=== PATIENT | female | born 1955 ===

== ENCOUNTER 2024-03-26 11:24 | Outpatient (RCR) | payer MEDICARE, BC, SELFPAY ==
[2024-03-26] MEDS: INJECTAFER 265 MG IV (11:56)
[2024-03-26 12:00] VITALS: BP 156/78
[2024-03-26 12:06] VITALS: BMI 36.3
[2024-03-26 12:47] VITALS: BP 135/63
== END 2024-03-27 10:13 | disposition home or self-care (01) ==
LOC: OID 11:24
PROVIDERS: ATTENDING PHYSICIAN Student in an Organized Health Care Education/Training Program
DX: D50.8 Other iron deficiency anemias (principal); I25.10 Atherosclerotic heart disease of native coronary artery without angina pectoris; R53.83 Other fatigue
CPT/HCPCS: 96365; J1439

== ENCOUNTER 2024-04-02 13:03 | Outpatient (RCR) | payer MEDICARE, BC, SELFPAY ==
[2024-04-02] MEDS: INJECTAFER 265 MG IV (13:33)
[2024-04-02 13:40] VITALS: BP 144/71
[2024-04-02 15:00] VITALS: BP 153/88
== END 2024-04-03 11:14 | disposition home or self-care (01) ==
LOC: OID 13:03
PROVIDERS: ATTENDING PHYSICIAN Student in an Organized Health Care Education/Training Program
DX: D50.8 Other iron deficiency anemias (principal); R53.83 Other fatigue; I25.10 Atherosclerotic heart disease of native coronary artery without angina pectoris
CPT/HCPCS: 96365; J1439